=== PATIENT | female | born 1975 | race Caucasian/White ===

== ENCOUNTER 2018-05-02 18:58 | Emergency (ER) | payer BC ==
--- NOTE | 2018-05-02 19:12 | EDPHY ---
H & P Stated Complaint: urinary/ low back pain - Personal History LMP (Females 10-55): Hysterectomy Current Tetanus/Diphtheria Vaccine: Unsure Current Tetanus Diphtheria and Acellular Pertussis (TDAP): Unsure - Medical/Surgical History Hx Asthma: No Hx Chronic Respiratory Disease: No Hx Diabetes: No Hx Cardiac Disease: No Hx Renal Disease: Yes Hx Cirrhosis: No Hx Alcoholism: No Hx HIV/AIDS: No Hx Splenectomy or Spleen Trauma: No Other PMH: stage 4 colon CA, hysterectomy, colon resection, liver resection, liver ablation, radio ablation to hip, L ureter stent - Social History Smoking Status: Never smoked Time Seen by Provider: 05/02/18 19:11 Constitutional: Initial Vital Signs Temperature (C) 37.1 C 05/02/18 19:06 Heart Rate 115 H 05/02/18 19:06 Respiratory Rate 16 05/02/18 19:06 Blood Pressure 160/104 H 05/02/18 19:06 O2 Sat (%) 98 05/02/18 19:06 O2 Delivery Mode Room Air Allergies/Adverse Reactions: irinotecan Allergy (Verified 05/02/18 19:03) morphine Allergy (Verified 05/02/18 19:03) oxaliplatin Allergy (Verified 05/02/18 19:03) contrast dye Allergy (Uncoded 05/02/18 19:03) Home Medications: Medication Instructions Recorded Azo Urinary Pain Relief 05/02/18 Cephalexin [Keflex (*)] 500 mg PO Q6 5 Days cap 05/02/18 Medical Decision Making ED Course/Re-evaluation: CHIEF COMPLAINT: Dehydration, weakness HISTORY OF PRESENT ILLNESS: This patient is a 43 year old female with history of stage IV metastatic colon cancer, diagnosed in October,. Te patient is currently visiting from [place] to follow up with her naturopathic oncologist, Dr. Bailee Tejada. She has undergone multiple therapies including radiofrequency treatment of metastasis to her acetabulum/ischium in March. In February, she had a stent placed in her ureter, and has had significant discomfort related to this. She has recently taken antibiotics for recurrent UTI symptoms. The patient has not felt well since these procedures, and has not been able to eat or drink well. Yesterday, she began to feel particularly weak and nauseous, and has felt dehydrated. She called her urologist, and presents today for UA and rehydration with IV fluids. She endorses urinary symptoms including dysuria, frequency, and urgency. She denies fever, chills, chest pain, shortness of breath, vomiting, diarrhea, or other associated symptoms. REVIEW OF SYSTEMS: A comprehensive 10 system review of systems is otherwise negative aside from elements mentioned in the history of present illness and medical decision making. PHYSICAL EXAM: HR, BP, O2 Sat, RR. Temp noted General Appearance: Alert, well hydrated, appropriate, and non-toxic appearing. Head: Atraumatic without scalp tenderness or obvious injury Eyes: Pupils equal, round, reactive to light and accommodation, EOMI, no trauma , no injection. Ears: Clear bilaterally, no perforation, normal landmarks Nose: Atraumatic, no rhinorrhea, clear. Throat: There is no erythema or exudates, no lesions, normal tonsils, mucus membranes moist. Neck: Supple, 2+ carotid upstroke, nontender, no lymphadenopathy. Respiratory: No retractions, no distress, no wheezes, and no accessory muscle use. Lungs are clear to auscultation bilaterally. Cardiovascular: Regular rate and rhythm, no murmurs, rubs, or gallops. Bilateral carotid, radial, dorsalis pedis, and posterior tibial pulses intact. Good capillary refill all extremities. Gastrointestinal: Abdomen is soft, nontender, non-distended, no masses, no rebound, no guarding, no peritoneal signs. Musculoskeletal: Normal active ROM of all extremities, atraumatic. Neurological: Alert, appropriate, and interactive. The patient has normal DTRs and non-focal cranial nerves, motor, sensory, and cerebellar exam. Skin: No rashes, good turgor, no nodules on palpation. Past medical history: Stage IV metastatic colon cancer. Past surgical history: Hysterectomy, colon resection, liver resection, liver ablation, L ureter stent Family history: Noncontributory. Social history: Friend at bedside. Lives in [place]. Engaged. DIFFERENTIAL DIAGNOSIS: The differential diagnosis for the patient included but was not limited to pneumonia, urinary tract infection, viral syndrome, and sepsis. MEDICAL DECISION MAKIN43 y/o female with metastatic colon cancer presents with weakness, dehydration. Patient is well-appearing and is hemodynamically stable. She is afebrile. Plan for labs including UA, urine cultures, I-stat chemistries. The patient understands that these will not be completed prior to her departure today and she will call for results if she does not hear from us in two days. Plan to administer 2L IVF for rehydration. 19:33 I-stat chemistries within normal limits. 20:50 UA/urine micro pending at this time. Plan to administer 30mg IV Toradol for pain relief. 21:00 Care of this patient transferred to Dr. Pérez at shift change, UA pending. (Augie Carey) 10:30 p.m., the patient was re-evaluated. Resting comfortably at this time. Pain currently well controlled. The patient had trace leukocyte esterase and some white blood cells and red blood cells in her urine. I will start her on Keflex in the emergency department pending her urine culture results. These should be available in a day or 2. She is returning to [place] on . She will see her urologist at that time. She feels comfortable going home. She will be sent home with a take-home pack of Keflex as well as a prescription for this medication. She will call for her culture results tomorrow afternoon. Preliminary results should be available at that time. She feels comfortable going home. Vital signs reviewed. She has been moderately hypertensive. Vital signs otherwise normal. She has been afebrile. Return to emergency department precautions reviewed with her. All of her questions were answered. She was discharged in good condition. (Curtis Pérez) - Data Points Microbiology Results: MICROBIOLOGY 05/02/18 20:50 Unspecified Urine Culture - Preliminary Two Mercedes Types Medications Given: Discontinued Medications Cephalexin (Keflex 500 Mg Prepack#4) 1 btl TAKEHOME EDNOW ONE PRN Reason: Protocol Stop: 05/02/18 22:36 Last Admin: 05/02/18 23:06 Dose: 1 btl Sodium Chloride (Ns) 1,000 mls @ 0 mls/hr IV EDNOW ONE; Wide Open PRN Reason: Protocol Stop: 05/02/18 19:24 Last Admin: 05/02/18 19:33 Dose: 1,000 mls Sodium Chloride (Ns) 1,000 mls @ 0 mls/hr IV EDNOW ONE; Wide Open PRN Reason: Protocol Stop: 05/02/18 19:24 Last Admin: 05/02/18 20:27 Dose: 1,000 mls Ketorolac Tromethamine (Toradol) 30 mg IVP EDNOW ONE Stop: 05/02/18 20:49 Last Admin: 05/02/18 20:51 Dose: 30 mg Point of Care Test Results: Chemistry 05/02/18 19:32 POC Sodium 139 mEq/L mEq/L (135-145) POC Potassium 3.9 mEq/L mEq/L (3.3-5.0) POC Chloride 101 mEq/L mEq/L (97-110) POC BUN 7 mg/dL mg/dL (7-23) POC Creatinine 0.7 mg/dL mg/dL (0.6-1.0) POC Glucose 122 mg/dL H mg/dL (70-100) ISTAT H&H 05/02/18 19:32 POC Hgb 15.0 gm/dL gm/dL (12.6-16.3) POC Hct 44 % % (38-47) Departure - Departure Disposition: Home, Routine, Self-Care Clinical Impression: Dehydration, Possible urinary tract infection Condition: Good Instructions: Dehydration (ED), Urinary Tract Infection in Women (ED) Additional Instructions: Read and follow provided instructions. Follow-up with your urologist and oncologist when you return home to [place] on . Take antibiotic as prescribed. Your urologist will decide on follow-up whether to keep you on this medication. Return to the emergency department for worsening symptoms, fever, vomiting, worsening pain or other serious concerns. Referrals: NONE *PRIMARY CARE P,. [Primary Care Provider] - As per Instructions Prescriptions: Cephalexin [Keflex (*)] 500 mg PO Q6 5 Days cap Report Scribed for: Augie Carey Report Scribed by: Anna Paul Date of Report: 05/02/18 Time of Report: 21:28
[2018-05-02] MEDS ORDERED: NS 1,000 ML IV ONE ×2 (19:23)
[2018-05-02] MEDS ORDERED: KETOROLAC 30 MG/1 ML SDV IVP ONE (20:48)
[2018-05-02] MEDS ORDERED: CEPHALEXIN 500MG PREPACK#4 BTL TAKEHOME ONE (22:35)
[2018-05-02 23:09] VITALS: BP 156/94
== END 2018-05-02 23:09 | disposition home or self-care (01) ==
DX: E86.0 Dehydration (principal); R30.0 Dysuria; Z85.038 Personal history of other malignant neoplasm of large intestine; Z96.0 Presence of urogenital implants
CPT/HCPCS: 82435-PO; 82565-PO; 82947-PO; 84132-PO; 84295-PO; 84520-PO; 85014-PO; 96374; J1885